=== PATIENT | female | born 1950 | race Caucasian/White ===

== ENCOUNTER 2021-02-22 12:56 | Emergency (ER) | payer SELFPAY ==
[2021-02-22 13:12] VITALS: BP 111/71
--- NOTE | 2021-02-22 14:26 | ED Physician Documentation ---
History of Present Illness - Stated complaint Stated Complaint: BOTH EAR PX - Chief complaint Chief Complaint: Heent - History obtained from History obtained from: Patient - Additonal information Additional information: Patient comes emergency department chief complaint of ear pain and like she has bugs on her skin. Patient states she has narrowed it down to anemic toad versus an amoeba and that she sees bumps on her skin and on her scalp. She has taken multiple pictures of her scalp and points out what appear to be hair follicles, stating that these are not normal for her. She denies any fevers or chills. No exotic travel. No drug use. Patient states she has been extremely anxious for a long time and is wondering if she can have something "for her "nerves". No other complaints at this time. Review of Systems Ten Systems: 10 systems reviewed and negative Constitutional: reports: Reviewed and negative Eyes: reports: Reviewed and negative Ears: reports: Ear pain Nose: reports: Reviewed and negative Throat: reports: Reviewed and negative Cardiac: reports: Reviewed and negative Respiratory: reports: Reviewed and negative GI: reports: Reviewed and negative : reports: Reviewed and negative Skin: reports: Rash Musculoskeletal: reports: Reviewed and negative Neurologic: reports: Reviewed and negative Psychiatric: reports: Anxiety, Insomnia Endocrine: reports: Reviewed and negative Immunocompromised: reports: Reviewed and negative PD PAST MEDICAL HISTORY - Present Medications Home Medications: Ambulatory Orders Medication Instructions Recorded Confirmed Ciproflox/Dexameth Otic Drops 4 drops OT BID #7.5 ml 02/22/21 [Ciprodex Otic Drops] Permethrin 5% Cream [Permethrin 60 applic TOP ONCE #60 ml 02/22/21 Cream] - Allergies Allergies/Adverse Reactions: Allergies Allergy/AdvReac Type Severity Reaction Status Date / Time No Known Drug Allergies Allergy Verified 02/22/21 13:08 PD ED PE NORMAL - Vitals Vital signs reviewed: Yes - General General: Alert and oriented X 3, Well developed/nourished, Other (Mildly anxious, otherwise no apparent distress.) - HEENT HEENT: Atraumatic, PERRL, EOMI, Moist mucous membranes, Other (No scalp lesions noted. Moderate erythema, edema, and sloughing right external auditory canal; left ear normal) - Neck Neck: Supple, no meningeal sign - Respiratory Respiratory: No respiratory distress - Derm Derm: Normal color, Warm and dry, No rash, Other (Patient pulled out multiple pores and a few maculopapular lesions which she states is examples of the rash she has seen.) - Extremities Extremities: No deformity, No edema - Neuro Neuro: Alert and oriented X 3 - Psych Psych: Normal mood, Normal affect Results - Vitals Vitals: Vital Signs - 24 hr 02/22/21 13:09 Temperature 36.8 C Heart Rate 88 Respiratory 18 Rate Blood Pressure 111/71 O2 Saturation 100 Oxygen O2 Source Room air PD MEDICAL DECISION MAKING - ED course Complexity details: considered differential, d/w patient ED course: The patient was very anxious and had what I felt was likely a delusion of parasitosis. She did not have obvious lesions that would indicate an infestation, but stated that nobody had ever treated her for the symptoms. I agreed to give her a single course of Elimite, but I have advised her that she will need to see her primary care physician and a baker second for any further concerns. Patient also has otitis externa and I have given her prescription for Ciprodex. Departure - Departure Disposition: 01 Home, Self Care Clinical Impression: Anxiety, Delusions of parasitosis Otitis externa Qualifiers: Otitis externa type: unspecified type Chronicity: acute Laterality: right Qualified Code(s): H60.501 - Unspecified acute noninfective otitis externa, right ear Condition: Stable Instructions: ED Otitis Externa Prescriptions: Ciproflox/Dexameth Otic Drops [Ciprodex Otic Drops] 4 drops OT BID #7.5 ml Permethrin 5% Cream [Permethrin Cream] 60 applic TOP ONCE #60 ml
[2021-02-22] MEDS ORDERED: LORazepam 1 MG TABLET PO STA (14:27)
== END 2021-02-22 14:49 | disposition home or self-care (01) ==
LOC: ED 12:56
DX: H60.501 Unspecified acute noninfective otitis externa, right ear (principal); F41.9 Anxiety disorder, unspecified; F22 Delusional disorders; F40.218 Other animal type phobia
CPT/HCPCS: 99282; 99283; J8499